=== PATIENT | female | born 1935 | race Caucasian/White ===

== ENCOUNTER → 2018-04-25 | Day surgery (SDC) | payer MEDICARE, OTHER ==
[2018-04-21 10:46] LABS: Urine WBC None Seen /hpf (0 - 5)
[2018-04-21 11:10] LABS: Basophils # (auto) 0 uL; Basophils % (auto) 1.2 % (0.0-2.0); Eosinophils # (auto) 0.1 uL; Eosinophils % (auto) 3.4 % (0.0-7.0); Hematocrit 41.5 % (36.0-46.0); Hemoglobin 13.7 g/dL (12.2-16.2); Lymphocytes # (auto) 0.7 uL; Lymphocytes % (auto) 19.8 % (10.0-50.0); Mean Corpuscular Hemoglobin 31.7 pg (28.0-32.0); Mean Corpuscular Hgb Conc. 33.1 g/dL (32.0-36.0); Monocytes # (auto) 0.5 uL; Neutrophils # (auto) 2.3 uL; Neutrophils % (auto) 62.6 % (37.0-80.0); Platelet Count (auto) 171 10^3/uL (140-450); Red Blood Cells 4.32 10^6/uL (4.0-5.20); Red Cell Distribution Width 13.7 % (11.8-14.3); White Blood Cell 3.7 10^3/uL (4.4-10.8)
[2018-04-21 11:15] LABS: Urine Bacteria NONE SEEN /hpf (None Seen); Urine Blood Negative /uL (Negative); Urine Specific Gravity 1.015 (1.001-1.035)
[2018-04-21 11:22] LABS: Calcium 8.9 mg/dL (8.5-10.1); Potassium 4.1 mmol/L (3.5-5.1)
[2018-04-21 11:25] LABS: BUN/Creatinine Ratio 22.1; Bilirubin, Total 0.9 mg/dL (0.2-1.0); Total Protein 7.6 g/dL (6.4-8.2)
[2018-04-21 11:26] LABS: INR 0.89 (0.9-1.15); Partial Thromboplastin Time 27.3 sec (23.78-33.04); Prothrombin Time 9.6 sec (9.27-12.13)
[~2018-04-25] VITALS: Ht 160 cm; Wt 67.1 kg
[~2018-04-25] MED LIST: ALPR0.5T PO; ATOR20TA PO; CLINDAMYCIN 600MG IV 50 ML IV ONE; ETOMIDATE (2MG/ML) 20ML VIAL IV ONE; KETOROLAC TROMETH 30 MG/ML 1ML VIAL ONE; LEVO75TA6 PO; LIDOCAINE 1% INJ PF 5ML AMP ONE; LIDOCAINE W/ EPINEPHRINE 1% 20ML VIAL ONE; LISI10TA6 PO; MIDAZOLAM HCL 1MG/1ML-2 ML VIAL ONE; NALOXONE HCL 0.4 MG/ML VIAL IV PRN; ONDANSETRON HCL 4 MG/2 ML VIAL IV ONE; ROCURONIUM 10MG/ML 10ML VIAL IV ONE; ROPIVACAINE 0.5% (5MG/ML) 20ML AMPULE IJ ONE; SODIUM CHLORIDE LOCK 10 ML ONE; SUCCINYLCHOLINE CHLORIDE 20 MG/ML 10ML VIAL IV ONE; ZOLE5INJ IV; ePHEDrine SULFATE 50 MG/ML AMP IV PRN; ePHEDrine SULFATE 50 MG/ML AMP ONE; fentaNYL CITRATE 100 MCG/2 ML VL ONE
[2018-04-25] MEDS: HYDROmorphone HCL 2 MG/ML VL IV PRN ×3 (10:17→10:41)
[2018-04-25 10:56] VITALS: BP 142/90
== END | disposition home or self-care (01) ==
LOC: SUR 06:13
PROVIDERS: ATTEND Orthopaedic Surgery
DX: S46.012A Strain of muscle(s) and tendon(s) of the rotator cuff of left shoulder, initial encounter (principal); M75.42 Impingement syndrome of left shoulder; M13.812 Other specified arthritis, left shoulder; M60.812 Other myositis, left shoulder; I10 Essential (primary) hypertension; G47.33 Obstructive sleep apnea (adult) (pediatric); I25.10 Atherosclerotic heart disease of native coronary artery without angina pectoris; M81.8 Other osteoporosis without current pathological fracture; G62.9 Polyneuropathy, unspecified; E07.9 Disorder of thyroid, unspecified; Z88.0 Allergy status to penicillin; Z88.5 Allergy status to narcotic agent; Z79.899 Other long term (current) drug therapy; Z98.890 Other specified postprocedural states; X58.XXXA Exposure to other specified factors, initial encounter; Y93.89 Activity, other specified; Y92.89 Other specified places as the place of occurrence of the external cause; Y99.8 Other external cause status
CPT/HCPCS: 23180; 23412; 23415; 36415; 80053; 81001; 85025; 85610; 85730; 88305; A6257; J0330; J1170; J1885; J2250; J2405; J2795; J3010; J3490

== ENCOUNTER → 2019-10-08 | Outpatient (CLI) | payer MEDICARE, OTHER ==
[~2019-10-08] MED LIST changes: -CLINDAMYCIN 600MG IV 50 ML IV ONE; -ETOMIDATE (2MG/ML) 20ML VIAL IV ONE; -KETOROLAC TROMETH 30 MG/ML 1ML VIAL ONE; -LIDOCAINE 1% INJ PF 5ML AMP ONE; -LIDOCAINE W/ EPINEPHRINE 1% 20ML VIAL ONE; +LISI-648 PO; -LISI10TA6 PO; -MIDAZOLAM HCL 1MG/1ML-2 ML VIAL ONE; -NALOXONE HCL 0.4 MG/ML VIAL IV PRN; -ONDANSETRON HCL 4 MG/2 ML VIAL IV ONE; -ROCURONIUM 10MG/ML 10ML VIAL IV ONE; -ROPIVACAINE 0.5% (5MG/ML) 20ML AMPULE IJ ONE; -SODIUM CHLORIDE LOCK 10 ML ONE; -SUCCINYLCHOLINE CHLORIDE 20 MG/ML 10ML VIAL IV ONE; -ePHEDrine SULFATE 50 MG/ML AMP IV PRN; -ePHEDrine SULFATE 50 MG/ML AMP ONE; -fentaNYL CITRATE 100 MCG/2 ML VL ONE
== END | disposition home or self-care (01) ==
LOC: XY 09:45
PROVIDERS: ATTEND Orthopaedic Surgery Adult Reconstructive Orthopaedic Surgery
DX: M79.661 Pain in right lower leg (principal)
CPT/HCPCS: 93971

== ENCOUNTER → 2023-08-26 | Outpatient (CLI) | payer MEDICARE, OTHER ==
[~2023-08-26] MED LIST changes: -LISI-648 PO; +LISI10TA34 PO
[2023-08-30 06:06] LABS: Albumin 3.5 g/dL (2.9-4.4); Alpha-1-Globulin 0.3 g/dL (0.0-0.4); Alpha-2-Globulin 0.8 g/dL (0.4-1.0); Gamma Globulin 0.7 g/dL (0.4-1.8); Globulin Total 2.9 g/dL (2.2-3.9); Protein Total Serum 6.4 g/dL (6.0-8.5)
== END | disposition home or self-care (01) ==
LOC: LAB 08:16
PROVIDERS: ATTEND Psychiatry & Neurology Neurology
DX: G62.2 Polyneuropathy due to other toxic agents (principal)
CPT/HCPCS: 36415; 82951; 84155; 84165